=== PATIENT | male | born 1960 | race Hispanic/Latino ===

== ENCOUNTER 2023-08-15 12:20 | Emergency (ER) | payer BC, MEDICARE ==
[2023-08-15] MEDS ORDERED: methylPREDNISolone Sod Succ/PF 125 MG/2 ML VIAL ONE (12:59)
[2023-08-15] MEDS ORDERED: Ipratropium/Albuterol 3 ML NEB ONE (13:03)
[2023-08-15 13:15] LABS: Hematocrit 36.9 % (38.8-50.0); Mean Corpuscular HGB CONC 32.5 g/dL (32.0-36.0); Mean Corpuscular Hemoglobin 29.3 pg (27.0-33.0); Mean Corpuscular Volume 90.2 fl (81.2-95.1); Mean Platelet Volume 10.3 fl (7.4-10.4); Platelet Count 189 10x3/uL (150-450); RBC Distribution Width 14.5 % (11.5-14.5); Red Blood Cell (RBC) Count 4.09 10x6/uL (4.32-5.72); White Blood Cell (WBC) Count 25.4 10x3/uL (3.5-10.5)
[2023-08-15 13:31] LABS: ALT (SGPT) 16 U/L (8-55); AST (SGOT) 20 U/L (5-34); Albumin 3.1 g/dL (3.4-4.8); Alkaline Phosphatase 66 U/L (40-110); Anion Gap 16 mmol/L (10-20); BUN (Urea Nitrogen) 31 mg/dL (8.4-25.7); Bilirubin, Total 1.3 mg/dL (0.2-1.2); Calc. Creatinine Clearance 0 mL/min (70-130); Calcium 8.1 mg/dL (7.8-10.44); Carbon Dioxide 23 mmol/L (23-31); Chloride 98 mmol/L (98-107); Estimated GFR 37; Globulin 3.2 g/dL (2.4-3.5); Glucose 105 mg/dL (80-115); Protein, Total 6.3 g/dL (5.8-8.1); Sodium 133 mmol/L (136-145)
[2023-08-15 13:37] LABS: Troponin I 0.035 ng/mL (< 0.028)
[2023-08-15 13:48] LABS: Band 12 % (5-11); Lymphocytes 6 % (21-51); Monocytes 6 % (0-10)
[2023-08-15] MEDS ORDERED: cefTRIAXone (ROCEPHIN) 2 GM VIAL ONE (13:49)
[2023-08-15 13:50] LABS: Platelet Adequacy Comment Appears Adequate; Polychromasia SLIGHT = 2-3 cells (100X) (0-2/hpf)
[2023-08-15 14:07] LABS: MDiff Complete? YES
[2023-08-15] MEDS ORDERED: Azithromycin 500 MG VIAL ONE (14:21)
[2023-08-15 14:25] LABS: SARS-CoV-2 NAA Rapid Test Not Detected (NotDetected)
[2023-08-15 16:30] LABS: Lactic Acid 2.4 mmol/L (0.5-2.2)
== END 2023-08-15 19:55 | disposition short-term general hospital (02) ==
LOC: CSHERS 12:20
DX: J18.9 Pneumonia, unspecified organism (principal); R65.20 Severe sepsis without septic shock; I11.0 Hypertensive heart disease with heart failure; I50.9 Heart failure, unspecified; J44.9 Chronic obstructive pulmonary disease, unspecified; Z20.822 Contact with and (suspected) exposure to COVID-19
CPT/HCPCS: 36415; 71045; 80053; 83605; 83880; 84484; 85025; 85379; 87040; 93005; 94640; J0456; J0696; J1650; J2930; J7620